=== PATIENT | female | born 1945 | race Caucasian/White ===

== ENCOUNTER 2019-04-30 22:32 | Inpatient (IN) | payer MEDICARE, MEDICAID ==
[~2019-04-30] VITALS: Ht 162.6 cm; Wt 54.0 kg
[~2019-04-30 22:32] MED LIST: ASPI-1158 PO; ATOR20TA65 PO; ENAL20TA67 PO; GLYB5TAB4 PO; METF1000 PO
[2019-04-30] MEDS ORDERED: ACETAMINOPHEN 325MG TABLET PO STA (23:08)
[2019-04-30] MEDS ORDERED: SODIUM CHLORIDE 0.9% 1000ML BAG (SEPSIS BOLUS) IV ONE (23:15)
[2019-04-30 23:46] LABS: HEMATOCRIT. 29.4 % (36.0-48.0); HEMOGLOBIN. 9.5 g/dL (12.0-16.0); MEAN CORPUSCULAR HEMOGLOBIN 25.9 pg (28.0-32.0); MEAN CORPUSCULAR VOLUME 79.9 fL (81.0-99.0); MEAN PLATELET VOLUME 7.4 fl (7.4-10.4); PLATELET 220 x1000/uL (130-400); RED BLOOD CELL COUNT 3.68 mill/uL (4.2-5.4); RED CELL DISTRIBUTION WIDTH 16.1 % (11.6-14.6)
[2019-04-30 23:47] LABS: CHLORIDE 102 mEq/L (98-107)
[2019-05-01] MEDS ORDERED: VANCOMYCIN 1 G PREMIX 200 ML IV SCH (00:15)
[2019-05-01] MEDS ORDERED: PIPERACILLIN/TAZOBACTAM 3.375GM/50ML PREMIX IV ONE (00:15)
[2019-05-01 00:39] LABS: CLARITY URINE CLEAR (CLEAR); COLOR URINE YELLOW (YELLOW); KETONES URINE TRACE (NEGATIVE); LEUKOCYTE ESTERASE URINE NEGATIVE (NEGATIVE); NITRITE URINE NEGATIVE (NEGATIVE); OCCULT BLOOD URINE NEGATIVE (NEGATIVE); PH URINE 7.5 (4.5-8.0); PROTEIN URINE NEGATIVE (NEGATIVE); SPECIFIC GRAVITY URINE 1.021 (1.005-1.030)
[2019-05-01 01:38] LABS: PLATELET ESTIMATE NORMAL
[2019-05-01] MEDS ORDERED: ONDANSETRON HCL 4MG/2ML INJ IV PRN (03:30)
[2019-05-01] MEDS ORDERED: CLONIDINE 0.1MG TABLET PO PRN (03:30)
[2019-05-01] MEDS ORDERED: DEXTROSE 50% WATER 50ML SYRINGE IV PRN (03:30)
[2019-05-01] MEDS ORDERED: DIPHENHYDRAMINE 50MG/ML VIAL IV PRN (03:30)
[2019-05-01] MEDS: SODIUM CHLORIDE 0.9% 1,000 ML IV SCH ×2 (03:40→16:08)
[2019-05-01] MEDS: LEVOFLOXACIN 500MG PREMIX 100 ML IV SCH (03:40)
[2019-05-01] MEDS: INSULIN LISPRO 100 UNITS/ML SUBCUT SCH ×4 (08:20→20:58)
[2019-05-01] MEDS: BLOOD SUGAR DIAGNOSTIC STRIP TEST SCH ×4 (09:04→20:55)
[2019-05-01 12:00] VITALS: BP 155/67
[2019-05-01 13:00] VITALS: BP 157/70
[2019-05-01] MEDS: ACETAMINOPHEN 325MG TABLET PO PRN (15:37)
[2019-05-01 16:00] VITALS: BP 148/70
[2019-05-01 20:00] VITALS: BP 124/60
[2019-05-02 00:06] VITALS: BP 129/63
[2019-05-02] MEDS: SODIUM CHLORIDE 0.9% 1,000 ML IV SCH ×3 (00:19→21:17)
[2019-05-02 04:00] VITALS: BP 135/68
[2019-05-02] MEDS: LEVOFLOXACIN 500MG PREMIX 100 ML IV SCH (04:04)
[2019-05-02] MEDS: BLOOD SUGAR DIAGNOSTIC STRIP TEST SCH ×4 (05:43→21:16)
[2019-05-02] MEDS: INSULIN LISPRO 100 UNITS/ML SUBCUT SCH ×4 (07:33→21:18)
[2019-05-02 07:43] LABS: HEMATOCRIT. 29.9 % (36.0-48.0); HEMOGLOBIN. 9.9 g/dL (12.0-16.0); MEAN CORPUSCULAR HEMOGLOBIN 25.8 pg (28.0-32.0); MEAN PLATELET VOLUME 7.3 fl (7.4-10.4); PLATELET 215 x1000/uL (130-400); RED BLOOD CELL COUNT 3.84 mill/uL (4.2-5.4)
[2019-05-02 08:04] LABS: CHLORIDE 108 mEq/L (98-107)
[2019-05-02 10:34] LABS: PLATELET ESTIMATE NORMAL
[2019-05-02 12:00] VITALS: BP_SYST 132; BP_SYST 154; BP_DIAS 64; BP_DIAS 80
[2019-05-02] MEDS: ACETAMINOPHEN 325MG TABLET PO PRN (12:24)
[2019-05-02] MEDS: INSULIN GLARGINE UD 100 UNITS/ML SYR SUBCUT SCH (14:21)
[2019-05-02 16:00] VITALS: BP 153/76
[2019-05-03] VITALS: BP 151/75
[2019-05-03 04:00] VITALS: BP 152/71
[2019-05-03] MEDS: SODIUM CHLORIDE 0.9% 1,000 ML IV SCH (04:40)
[2019-05-03] MEDS: LEVOFLOXACIN 500MG PREMIX 100 ML IV SCH (04:40)
[2019-05-03] MEDS: BLOOD SUGAR DIAGNOSTIC STRIP TEST SCH ×2 (06:47→12:40)
[2019-05-03] MEDS: INSULIN LISPRO 100 UNITS/ML SUBCUT SCH ×2 (08:10→13:32)
[2019-05-03] MEDS: INSULIN GLARGINE UD 100 UNITS/ML SYR SUBCUT SCH (10:43)
== END 2019-05-03 18:00 | disposition home or self-care (01) | DRG 872 ==
LOC: ER 22:32 → EDBEDREQ 05-01 00:21 → 7WST 05-01 00:53 → EDBEDREQDT 05-01 00:58 → EDBEDREQ 05-01 00:58 → EDBEDREQTM 05-01 00:58 → EDBEDREQSVC 05-01 00:58 → ENRESERV 05-01 10:39
PROVIDERS: ADMIT Internal Medicine; ATTEND Internal Medicine
DX: A41.9 Sepsis, unspecified organism (principal); E87.2 Acidosis; N39.0 Urinary tract infection, site not specified; D64.9 Anemia, unspecified; E11.9 Type 2 diabetes mellitus without complications; I10 Essential (primary) hypertension; K52.9 Noninfective gastroenteritis and colitis, unspecified; M19.90 Unspecified osteoarthritis, unspecified site; E78.00 Pure hypercholesterolemia, unspecified; K57.30 Diverticulosis of large intestine without perforation or abscess without bleeding; Z88.0 Allergy status to penicillin; Z83.3 Family history of diabetes mellitus; Z90.49 Acquired absence of other specified parts of digestive tract; Z79.899 Other long term (current) drug therapy; Z79.82 Long term (current) use of aspirin; Z79.84 Long term (current) use of oral hypoglycemic drugs
CPT/HCPCS: 36415; 71045; 74176; 80048; 81003; 82962; 83605; 84145; 84484; 87015; 87045; 87427; 87449; 87493; 87804; 89055; 93005; 96374; 99285; J1200; J1815; J1956; J3370; J7030